=== PATIENT | female | born 1995 | race Caucasian/White ===

== ENCOUNTER 2017-09-25 22:24 | Emergency (ER) | payer OTHER ==
[~2017-09-25] VITALS: Ht 162.6 cm; Wt 67.0 kg
[2017-09-25 22:25] VITALS: BP 124/67
[2017-09-25] MEDS ORDERED: PRENCHW PO (22:35)
[2017-09-25] MEDS ORDERED: NS 1,000 ML IV ONE (23:15)
[2017-09-25 23:50] LABS: BASO % 0.1 % (0.0-1.0); EOS % 0.3 % (0.0-3.0); IMMATURE GRANULOCYTE % 0.5 % (0-0); LYMPH # 2.1 10^3/uL (1.5-6.5); LYMPH % 23.8 % (24.0-44.0); MEAN CORPUSCULAR HEMOGLOBIN 31.6 pg (27.0-33.0); MEAN CORPUSCULAR VOLUME 93.1 fl (80.0-96.0); MONO # 0.6 10^3/uL (0.0-0.8); MONO % 6.6 % (0.0-5.0); NEUTROPHILS # 6.1 10^3/uL (1.8-7.7); NEUTROPHILS % 68.7 % (36.0-66.0); PLATELET COUNT, AUTOMATED 214 10^3/uL (150-450); RED CELL DISTRIBUTION WIDTH 13.4 % (11.5-14.5); WHITE BLOOD COUNT 8.8 10^3/uL (4.0-10.0)
--- NOTE | 2017-09-26 | REPUSA ---
OBSTETRICAL ULTRASOUND INDICATION: OB screening. Cramping. FINDINGS: A single live intrauterine gestation was identified with a heart rate of 169 bpm. The amniotic fluid index is within normal limits cm. The placenta was posterior, without evidence of florecita centa previa. The fetus was in a breech position. The cervix measures 3.6 cm in length and is closed. The cranium and ventricles are unremarkable. Posterior fossa is within normal limits. The spine is only partially seen. The orbits, facial anatomy, nasal anatomy, and lips are normal in appe arance. All 4 extremities appear grossly unremarkable. A four-chamber heart was not fully visualized. The stomach, kidneys, bladder, and diaphragm are intact. A three-vessel umbilical cord with no rmal cord insertion is appreciated. BIOMETRIC MEASUREMENTS BPD 3.5 cm HC 12.7 cm AC 10.0 cm FL 2.0 cm IMPRESSION: 1. Single live fetus based on today's measurements at 16 weeks 2 days with estimated due date of 03/10. 2. No abnormality detected on the survey. However, the spine and four chamber heart only partially visualized. If there is further clinical concern, repeat study could be performed.
[2017-09-26 00:14] LABS: ANION GAP 8 MEQ/L (8-16); BLOOD UREA NITROGEN 10 MG/DL (7-18); CALCIUM LEVEL 8.5 MG/DL (8.5-10.1); CARBON DIOXIDE LEVEL 28 MEQ/L (21-32); CHLORIDE LEVEL 105 MEQ/L (98-107); CREATININE FOR GFR 0.49 MG/DL (0.55-1.02); GLOMERULAR FILTRATION RATE > 60.0 (>60); GLUCOSE, FASTING 84 MG/DL (70-105); POTASSIUM SERUM 3.8 MEQ/L (3.5-5.1); SODIUM LEVEL 141 MEQ/L (136-145)
[2017-09-26] MEDS ORDERED: MACR100C43 PO (00:28)
[2017-09-26] MEDS ORDERED: NITROFURANTOIN (MACROBID) 100 MG CAP PO ONE (00:30)
== END 2017-09-26 00:39 | disposition home or self-care (01) ==
LOC: M ED 22:24
DX: O23.42 Unspecified infection of urinary tract in pregnancy, second trimester (principal); Z3A.16 16 weeks gestation of pregnancy; O99.342 Other mental disorders complicating pregnancy, second trimester; Z79.899 Other long term (current) drug therapy; Z88.0 Allergy status to penicillin

== ENCOUNTER → 2019-09-22 | Outpatient (REF) | payer OTHER ==
[~2019-09-22] MED LIST: MACR100C43 PO; PRENCHW PO
[2019-09-23 09:45] LABS: CHLAMYDIA DNA AMPLIFICATION NEGATIVE (NEGATIVE); GC DNA AMPLIFICATION NEGATIVE (NEGATIVE)
== END ==
LOC: M SFHCLERA 13:18
PROVIDERS: ATTEND Physician Assistant
DX: R35.0 Frequency of micturition (principal)
CPT/HCPCS: 81002; 81025; 87086; 87661; G0463

== ENCOUNTER 2020-09-04 17:11 | Emergency (ER) | payer OTHER ==
[~2020-09-04] VITALS: Ht 162.6 cm; Wt 58.3 kg
[2020-09-04] MEDS ORDERED: AMPH1CAP16 PO (17:16)
[2020-09-04] MEDS ORDERED: TRI-TAB PO (17:16)
[2020-09-04] MEDS ORDERED: IBUP-1022 PO (17:16)
[2020-09-04] MEDS ORDERED: KETOROLAC 30 MG/ML 1ML VIAL IV ONE (18:30)
[2020-09-04] MEDS ORDERED: NS 1,000 ML IV ONE (18:30)
[2020-09-04] MEDS ORDERED: ONDANSETRON 4MG/2ML VIAL IV ONE (18:30)
[2020-09-04 18:43] LABS: BASO % 0.3 % (0.0-1.0); EOS % 0.3 % (0.0-3.0); HEMATOCRIT 44.6 % (36.0-47.0); HEMOGLOBIN 14.6 g/dl (12.0-15.5); LYMPH # 2.2 10^3/uL (1.5-5.0); LYMPH % 34.3 % (24.0-44.0); MEAN CORPUSCULAR HEMOGLOBIN 29.7 pg (27.0-33.0); MEAN CORPUSCULAR HGB CONC 32.7 g/dl (32.0-36.5); MEAN CORPUSCULAR VOLUME 90.8 fl (80.0-96.0); MONO # 0.4 10^3/uL (0.0-0.8); MONO % 6.4 % (0.0-5.0); NEUTROPHILS # 3.7 10^3/uL (1.5-8.5); NEUTROPHILS % 58.4 % (36.0-66.0); PLATELET COUNT, AUTOMATED 235 10^3/uL (150-450); RED BLOOD COUNT 4.91 10^6/uL (4.00-5.40); WHITE BLOOD COUNT 6.4 10^3/uL (4.0-10.0)
[2020-09-04 19:12] LABS: ALBUMIN 4.1 GM/DL (3.2-5.2); ALT/SGPT 17 U/L (12-78); BILIRUBIN,DIRECT 0.2 MG/DL (0.0-0.2); BILIRUBIN,TOTAL 0.8 MG/DL (0.2-1.0); MAGNESIUM LEVEL 2.2 MG/DL (1.8-2.4)
[2020-09-04 19:13] LABS: C REACTIVE PROTEIN QUANTITATIV < 0.30 MG/DL (0.00-0.30); FREE T4 1.34 NG/DL (0.76-1.46)
--- NOTE | 2020-09-04 20:12 | REPVR ---
PROCEDURE INFORMATION: Exam: CT Head Without Contrast Exam date and time: 09/04/2020 7:11 PM Age: 24 years old Clinical indication: Pain; Headache; Additional info: Headache/vision changes TECHNIQUE: Imaging protocol: Computed tomography of the head without contrast. Radiation optimization: All CT scans at this facility use at least one of these dose optimization techniques: automated exposure control; mA and/or kV adjustment per patient size (includes targeted exams where dose is matched to clinical indication); or iterative reconstruction. COMPARISON: No relevant prior studies available. FINDINGS: Brain: Normal. No hemorrhage. Unremarkable white matter. No mass effect. Cerebral ventricles: No ventriculomegaly. Bones/joints: Unremarkable. No acute fracture. Paranasal sinuses: Visualized sinuses are unremarkable. No fluid levels. Mastoid air cells: Visualized mastoid air cells are well aerated. Soft tissues: Unremarkable. IMPRESSION: No acute intracranial abnormality. Electronically signed by: Magi Gutierrez On 09/04/2020 20:12:23 PM
[2020-09-04 20:27] LABS: ERYTHROCYTE SEDIMENTATION RATE 4 mm/hr (0-20)
[2020-09-04] MEDS ORDERED: SUMAtriptan SUCCINATE 25 MG TAB PO ONE (20:45)
[2020-09-04 22:41] VITALS: BP 127/73
== END 2020-09-04 22:45 | disposition home or self-care (01) ==
LOC: M ED 17:11
DX: R51.9 Headache, unspecified (principal); Z88.0 Allergy status to penicillin
CPT/HCPCS: 70450; 80047; 80076; 83735; 84439; 84443; 84702; 85025; 85652; 86140; 96374; 96375; 99284; J1885; J2405